=== PATIENT | female | born 1930 | race Caucasian/White ===

== ENCOUNTER 2017-03-25 14:20 | Emergency (ER) | payer MEDICARE ==
[~2017-03-25] VITALS: Ht 149.9 cm; Wt 67.4 kg
[~2017-03-25 14:20] MED LIST: ACET650T59 PO; ASPI-623 PO; HYDR-4246 PO; MELO-267 PO; OMEP20CA81 PO
--- OUTSIDE RECORDS SUMMARY | 2017-03-25 14:24 | XMS REPORT | Continuity of Care Document ---
Author Author [facility] Organization [facility] Address Unknown Phone Unavailable Support Name Relationship Address Phone MARCH, MARION Viri PETERSEN Caregiver [address] [place] [address] Unavailable RUPA RAPHAEL DO Caregiver [address] [place] [address] Unavailable GALLITO STANLEY Next Of Kin [address] [place] [address] Insurance Providers Guarantor Jessy Riojas Address [address] [place] [id number] Email [id number] Payer [employer] Ppo Policy Number [id number] Subscriber's Name Riojas,Jessy Relationship 18 Self Group Number [id number] Chief Complaint and Reason for Visit Chief Complaint Low Back Pain or Injury Reason for Visit Compression fracture Spinal stenosis at L4-L5 level Problems Past Problems Medical Problem Onset Date Compression fracture Unknown Spinal stenosis at L4-L5 level Unknown Medications Current Home Medications Medication Dose Units Route Directions Days Qty Instructions Start Date Acetaminophen (Tylenol Arthritis) 650 Mg Tablet. 650 Mg Oral As Needed 02/04/09 Aspirin 325 Mg Tablet. 81 Mg Oral As Needed 02/22/09 Hydrocodone/Acetaminophen ([place] 5-325 Tablet) 5-325 Tablet 1-2 Tab Oral Q6h/0300,0900,1500,2100 as needed for Pain 20 Tablet 01/20/17 Meloxicam 15 Mg Tablet 15 Mg Oral Twice A Day 01/20/17 Omeprazole (Prilosec) 20 Mg Capsule. 20 Mg Oral 02/04/09 Past Home Medications Medication Directions Ordered Status Cipro , 02/05/09 Discontinued Lorazepam 0.5 Mg Tablet, 0.5 Mg Oral As Needed 02/04/09 Discontinued Omeprazole (Prilosec) 20 Mg Tablet.dr 20 Mg Oral Daily 02/03/09 Discontinued Phenazopyridine Hcl (Pyridium) 100 Mg Tablet, 100 Mg Oral Four Times Daily Discontinued Propoxyphene/Acetaminophen (Darvocet N 100) 1 Udtab Tablet, 1 Udtab Oral As Needed 02/05/09 Discontinued Sulfamethoxazole/Trimethoprim (Bactrim Ds) 1 Tab Tablet, 1 Tab Oral Twice A Day 02/04/09 Discontinued Social History Social History Problem Response Recorded Date/Time Onset Date Status Hx Substance Use No 01/20/2017 1:55am Not Applicable Not Applicable Hx Alcohol Use No 01/20/2017 1:55am Not Applicable Not Applicable Query Response Start Date Stop Date Smoking Status Never smoker Hospital Discharge Instructions No hospital discharge instructions. Plan of Care Discharge Date 01/20/17 4:35am Disposition 01 DISCHARGED HOME, SELF-CARE Condition at Discharge Improved Instructions/Education Provided Vertebral Compression Fracture (ED) Lumbar Spinal Stenosis (ED) Prescriptions See Medication Section Referrals CHERYLE JOSEPH MD Order Date: 3 Days Address: [address] [place] [address] [place] [phone] Note: Additional Instructions/Education You have a compression fracture of your T12 vertebra and some other abnormalities in your lumbar spine. Take naproxen and tylenol as needed for pain. Heat, massage, and positioning may also help. Take the norco only if your pain is not controlled with these other measures. Follow up with your doctor to follow your progress and determine what to do about your lumbar abnormalities. He may also consider starting you on a medication for osteoporosis. Do not keep to your bed, but be careful as you move about. Care Plan and Goals Physician Care Plan Problem: T12 compression fx Goal: Follow up with primary care provider Instructions: Take medications and follow care plan as discussed/written Functional Status No functional status results. Allergies, Adverse Reactions, Alerts Allergen Type Severity Reaction Status Last Updated No Known Drug Allergies Allergy Unknown Active 02/03/09 Immunizations Query Response on File Recorded Date/Time Hx Influenza Vaccination Y 02/15/11 2:52pm Hx Pneumococcal Vaccination No 02/15/11 2:52pm Hx Influenza Vaccination Y 02/15/11 2:52pm Influenza Vaccine Hx FALL 201501/20/17 1:55am Vital Signs Acute Vital Signs Vital Response Date/Time Temperature (Fahrenheit) 98.0 deg F (96.8 - 99.1) 01/20/2017 4:35am Temperature (Calculated Celsius) 36.70293 degrees C (36.0 - 37.3) 01/20/2017 4:35am Pulse Rate (adult) 84 bpm (60 - 100) 01/20/2017 4:35am Respiratory Rate 18 breaths/min (10 - 20) 01/20/2017 4:35am O2 Sat by Pulse Oximetry 95 % (90 - 100) 01/20/2017 4:35am Blood Pressure 144/66 mm Hg 01/20/2017 4:35am Height (Feet) 5 feet 01/20/2017 1:15am Height (Inches) 0 inches 01/20/2017 1:15am Weight (Kilograms) 70.500 kg 01/20/2017 1:15am Body Mass Index (BMI) 30.0 01/20/2017 1:15am Results Laboratory Results Test Name Result Units Flags Reference Collection Date/Time Result Date/ Time Comments Urine Collection Type CLEANCATCH-MIDSTREAM 01/20/2017 3:13am 2016 3:18am Urine Color YELLOW YELLOW 01/20/2017 3:13am 01/20/2017 3:18am Urine Turbidity CLEAR CLEAR 01/20/2017 3:1301/20/2017 3:18am Urine Specific [place] <=1.005 L 1.015-1.025 01/20/2017 3:13am 2016 3:18am Urine pH 6.5 5.0-8.0 01/20/2017 3:13am 01/20/2017 3:18am Urine Leukocyte Esterase NEGATIVE NEGATIVE 01/20/2017 3:13am 2016 3:18am Urine Nitrite NEGATIVE NEGATIVE 01/20/2017 3:13am 01/20/2017 3:18am Urine Protein NEGATIVE NEGATIVE 01/20/2017 3:13am 01/20/2017 3:18am Urine Glucose (UA) NEGATIVE NEGATIVE 01/20/2017 3:13am 01/20/2017 3: 18am Urine Ketones NEGATIVE NEGATIVE 01/20/2017 3:1301/20/2017 3:18am Urine Urobilinogen 0.2 EU/DL NORMAL 01/20/2017 3:13am 01/20/2017 3: 18am Urine Bilirubin NEGATIVE NEGATIVE 01/20/2017 3:13am 01/20/2017 3: 18am Urine Blood NEGATIVE NEGATIVE 01/20/2017 3:13am 01/20/2017 3:18am Urinalysis Comment MICROSCOPIC NOT IND. 01/20/2017 3:13am 2016 3:18am Procedures No known history of procedures. Encounters Encounter Location Arrival/Admit Date Discharge/Depart Date Attending Provider Departed Emergency Room [facility] 01/20/17 1:12am 01/20/17 4: 35am MARION PORTER DO Recent Diagnosis
[2017-03-25 14:31] VITALS: Ht 149.9 cm; Wt 67.4 kg
[2017-03-25] MEDS ORDERED: TIMO5DRO7 OP (14:52)
[2017-03-25] MEDS ORDERED: LATA2.5D7 BOTH EYES (14:52)
[2017-03-25] MEDS ORDERED: METH750T3 PO (14:52)
[2017-03-25] MEDS ORDERED: AMOX500C2 PO (14:52)
[2017-03-25] MEDS ORDERED: CALC600T12 PO (14:52)
--- NOTE | 2017-03-25 15:11 | ERPDOC ---
Departure Disposition Decision Date: March 25, 2017 Disposition Decision Time: 16:53 Disposition: 01 DISCHARGED HOME, SELF-CARE Impression Impression Impression: Primary Impression: Gingival abscess Severity: Moderate Condition: Improved Seen By: Mid-level only Referrals: RUPA RAPHAEL DO (Family) Patient Instructions: Dental Abscess (ED) Problems/Meds/Labs Reviewed?: Yes Medications reviewed and manag: Yes Additional Instructions: You have a abscess in your gingiva. You may stop amoxicillin and methocarbamol. Take clindamycin 300mg four times daily for 1 week. Please finish all. You may take one Dexter 5/325mg as needed for pain. This medication may cause drowsiness, so avoid operating heavy machinery, driving or drinking alcohol while taking. You should follow with your dentist in the next week for re-evaluation. Follow up care ordered?: Yes Mental Status: Alert, Oriented Scripts Hydrocodone/Acetaminophen (Dexter 5-325 Tablet) 5-325 Tablet 1 TAB PO Q4H for PAIN, #30 TAB Prov: ANIYA WOOTEN APRN 03/25/17 Clindamycin HCl (Clindamycin HCl) 300 Mg Capsule 1 CAP PO QID, #7 CAP TAKE WITH A FULL GLASS OF WATER TO AVOID ESOPHAGEAL IRRITATION. Prov: ANIYA WOOTEN TRAVEL SERVICE CONSULTANT 03/25/17 HPI General Chief Complaint: Toothache Stated Complaint: SWOLLEN RIGHT SIDE OF FACE WITH PAIN Time Seen by Provider: 14:56 Source: patient HPI Dental Initial Comments 87 yo F presents to ED with right jaw pain. Patient began to have jaw pain over 1 week ago. Was seen by her PCP and started on a muscle relaxant. Then she follow with her dentist "who did not see anything" but started her on amoxicillin. Patient reports that pain has increased. Says she barely open her mouth due to pain. Pain Scale: Now: 8/10 Allergies: Coded Allergies: No Known Drug Allergies (Verified Allergy, Unknown, 03/25/17) Past History Past Medical History Cardiac: CAD GI: GERD Vaccines Hx Influenza Vaccination: Yes () Hx Pneumococcal Vaccination: No Review of Systems Constitutional Constitutional: DENIES: chills, dizziness, fever, weakness Eyes General: DENIES: erythema, exudate Lids/Accessories: DENIES: erythema, swelling ENMT Ears: DENIES: pain Hearing: DENIES: hearing loss Sinuses: DENIES: congestion, rhinorrhea Mouth/Throat: DENIES: sore throat Teeth: pain, see HPI Jaw: limited opening of mouth, pain Cardiovascular Cardiac: DENIES: chest pain, murmur Rhythm/Rate: DENIES: palpitations Pulmonary Respiratory: DENIES: cough, dyspnea GI Upper Abdomen: DENIES: nausea, pain, vomiting Lower Abdomen: DENIES: diarrhea, pain General: DENIES: dysuria, pain Musculoskeletal General: DENIES: joint pain, pain, tenderness Integumentary Skin: DENIES: color change, itching, rash Neurological General: DENIES: ataxia, change in strength, numbness, paralysis/paresis, weakness Psychiatric Psychiatric: DENIES: anxiety, depression, nervousness Exam General General Nourishment: well nourished, well developed, no acute distress, adult General Body Habitus: well groomed Vital Signs: Temperature: 98.5, Source: Oral, Heart Rate: 100, Respiratory Rate : 16, BP: 161/78, Pulse Oximetry: 94 Height (Feet): 4 Height (Inches): 11.00 Eyes (brief) Eyes Brief: found: EOMI, PERRL ENMT Tympanic Membrane: Both: Normal Mouth/Dental/Tongue: FOUND: mucosa moist, other (multiple missing teeth), NOT FOUND: tender teeth Pharynx: FOUND: posterior drainage Jaw: FOUND: tenderness (over right TMJ), trismus, NOT FOUND: TMJ clicking, TMJ locking Neck (brief) Neck Brief: FOUND: trachea midline, NOT FOUND: adenopathy, tenderness, thyromegaly Respiratory (brief) Respiratory Brief: FOUND: clear all meneses, equal bilaterally, symmetrical Cardiovascular (brief) Cardiac Brief: FOUND: regular rate, regular rhythm Integumentary (brief) Integumentary Brief: FOUND: dry, pink, warm Neurologic RN Documented GCS Eye Opening: Verbal: Motor: Total: Psychiatric (brief) Psychiatric Brief: FOUND: alert, normal affect, oriented Differential Diagnoses Considering: Gingival Abscess, Caries, Gingivitis, Other (TMJ) Procedures Procedures Performed Procedures Performed: Incision & Drainage Incision and Drainage Procedure I&D : Site: Gingiva Blade Size: other (18 g needle) Drainage: purulent Amount (cc's): 4-5 Culture Obtained?: Yes Progress Results/Orders Orders Medications Current ED Medications Acetaminophen/ Hydrocodone Bitart (Dexter 5/325) 1 tab O ONCE PO Last administered on 03/25/17t 15:51; Start 03/25/17 at 15:30; Stop 03/25/17 at 15:31 ; Status DC Progress Progress I discussed CT results with patient and family. Patient able to open her mouth a little more after Dexter . I could feel bulging over gingiva over impacted 3rd lower molar which is TTP. Patient and family agree to provider using a needle to open and drainage what feels like an abscess. Approx. 4-5 mls of purulent drainage from abscess. I will switch patient to clindamycin. I discussed treatment plan, follow up with dentist and return precautions which patient and family verbalized understanding. Ultrasound US : Ultrasound: Other (maxillofacial) Interpretation: Abnormal (Soft tissue swelling or mass in retromandibular trigone area), Discussed w/ Radiologist ANIYA WOOTEN APRN March 25, 2017 15:11
[2017-03-25] MEDS ORDERED: HYDROCODONE/APAP 5 mg/325 mg TABLET PO ONE (15:30)
--- NOTE | 2017-03-25 16:05 | NUR ---
XR Patient out to XR
--- NOTE | 2017-03-25 16:17 | NUR ---
XR Patient returns
--- NOTE | 2017-03-25 16:41 | DI ---
Indication: ITS.REASON: pain over right TMJ with trismus PROCEDURE: CT MAXILLOFACIAL W/O CONTRAST: Encounter: Initial Comparison: None Technique: Axial noncontrast CT images through the mid face were performed with coronal and sagittal two-dimensional reformats. Automated Exposure Control and Iterative Reconstruction dose reducing techniques were utilized. Findings: No acute fracture identified. Temporomandibular joints are located. There is mild degenerative change in the right temporomandibular joint with osteophyte formation. Multiple prior dental extractions and restorations. The paranasal sinuses are clear. Soft tissue windows show asymmetrically increased soft tissue in the retromolar trigone region on the right. This measures approximately 3 x 1.9 cm on axial image #20. This is associated with the medial pterygoid muscle. This process is immediately adjacent to an impacted mandibular wisdom tooth. Prior cataract surgeries. There is no associated adenopathy. The right submandibular gland appears asymmetrically enlarged. The parotid glands appear normal and symmetric. No focal fluid collection appreciated. Impression: Asymmetric soft tissue swelling or mass in the right retromandibular trigone area associated with the medial pterygoid muscle belly. Differential considerations include dental related inflammation and phlegmon formation along with primary malignancy such as a squamous cell carcinoma. Recommend dental and ENT evaluation. Contrast enhanced study may add some additional information although there is significant artifact from dental restorations. .
[2017-03-25] MEDS ORDERED: HYDR-4246 PO (16:57)
[2017-03-25] MEDS ORDERED: CLIN300C86 PO (16:57)
[2017-03-25 17:30] VITALS: BP 139/71; PULSE 95; RESP 16; TEMP 98.5; O2SAT 95
--- NOTE | 2017-03-30 10:12 | NUR ---
CULTURE CULTURE RESISTANT TO CLINDAMYCIN. RX FOR AUGMENTIN 875MG PO BID X10 DAYS CALLED TO [facility] PER DR KING'S ORDER AND PT REQUEST
== END 2017-03-25 17:30 | disposition home or self-care (01) ==
LOC: ED 14:20
DX: K05.212 Aggressive periodontitis, localized, moderate (principal)
CPT/HCPCS: 41800; 70486; 87070; 87075; 87076; 87147; 87181; 87205; 99283; A9270